=== PATIENT | male | born 1970 | race African-American/Black ===

== ENCOUNTER 2025-03-19 13:45 | Outpatient (RCR) | payer OTHER, SELFPAY | END 2025-05-20 13:59 | disposition home or self-care (01) | PROVIDERS: PCP Family Medicine; Visit Provider Physical Medicine & Rehabilitation | DX: M47.812 Spondylosis without myelopathy or radiculopathy, cervical region (principal); Z51.89 Encounter for other specified aftercare | CPT/HCPCS: 97110; 97161 ==